=== PATIENT | male | born 1975 | race Caucasian/White ===

== ENCOUNTER 2019-10-21 12:09 | Emergency (ER) | payer BC ==
[~2019-10-21 12:09] MED LIST: Aspirin 81 MG Tab.Chew PO ONE; Clopidogrel 75 MG Tab PO ONE; Metoprolol Tartrate 25 MG Tab PO ONE
--- NOTE | 2019-10-21 12:41 | CR ---
Chest: Portable view of the chest was obtained. Comparison: No previous chest imaging. Heart size and mediastinum are normal. Lungs are clear. Bony structures are grossly intact. Impression: 1. Nothing acute is seen on portable chest x-ray. Diagnostic code #1 Study was dictated in [place] Standard Time
[2019-10-21 13:01] LABS: BLOOD UREA NITROGEN,BUN 13 mg/dL (7.0-18.0); CARBON DIOXIDE,CO2 28.9 mmol/L (21.0-32.0); CHLORIDE,CL 103 mmol/L (98-107); GLUCOSE RANDOM 141 mg/dL (74-106); POTASSIUM,K 3.7 mmol/L (3.5-5.1); SODIUM,NA 143 mmol/L (136-148)
[2019-10-21] MEDS ORDERED: Metoprolol Tartrate 25 MG Tab PO ONE (13:16)
--- NOTE | 2019-10-21 13:18 | EDM.PDOC ---
ED [facility] GENERAL MEDICAL PROBLEM - General Chief Complaint: Cardiovascular Problem Stated Complaint: BROUGHT FROM THE CLINIC Time Seen by Provider: 10/21/19 13:18 - History of Present Illness INITIAL COMMENTS - FREE TEXT/NARRATIVE: HPI 44-year-old obese male with DM II and HTN presents from cardiology clinic due to a new LBBB with anterior wall motion abnormalities in EF of ~25%, last chest pain approximately 2 days ago, had a significant period of chest pain approximately 3 weeks ago, currently asymptomatic. No shortness breath, no fevers or chills. Denies history of DVT or PE. Patient denies recent immobilization, leg trauma, estrogen use, surgery in the last four weeks, hemoptysis, or malignancy in the last 6 months. [employer] Supervisor: Brennon Ashley MD M/S/F/SocHx notable for: please see HPI; remainder reviewed with patient and in chart. ROS: Negative constitutional, eye, cardiovascular, pulmonary, GI, , MSK, skin , neurologic, psychiatric, endocrine unless noted in the HPI. Exam Gen: Pleasant, non-toxic appearing, resting comfortably. HEENT: NC, AT, PEERL, EOMI. Resp: Clear to auscultation bilaterally, normal work of breathing. Card: RRR with no M/R/G, no crackles in lung bases, no pedal edema, no JVD appreciated. GI: NT/ND Vascular: Both ankles, calves, and thighs of equal size, no calf tenderness to palpation bilaterally. MSK: No chest wall TTP. No visible deformities, strength and tone WNL. Skin: Normal color with no visible lesions. Neuro: alert and oriented 3, no facial asymmetry, vision and hearing WNL. Psych: Mood and affect appropriate. Labs / Imaging (pertinent): WBC 9.17, Hb 17.0, Na 143, K 3.7. Troponin <0.050 BNP (pending) EKG: SR 102 bpm, SC 156 ms, no SC segment depressions, QRS 159 ms, LBBB. Does not meet modified Sgrabossa criteria. CXR: nothing acute is seen on portable chest x-ray. MDM Previous chart, nursing note, and vitals reviewed. A: 44-year-old obese male with DM II and HTN presents from cardiology clinic due to a new LBBB with anterior wall motion abnormalities in EF of ~25%, last chest pain approximately 2 days ago, had a significant period of chest pain approximately 3 weeks ago, currently asymptomatic. DDx: ACS, unstable angina, pericarditis, myocarditis, dissection, PE, mediastinal air, pneumothorax, MSK, endocarditis, GI (GERD, gastritis, esophageal rupture, esophageal spasm). Evaluation: concern exists for unstable angina versus recent SD given the new LBBB, anterior wall motion abnormality, and poor EF, troponin negative. ED course as below. No features suggestive of pericarditis, myocarditis, PE, or dissection. However the latter two cannot be definitively excluded, however there felt to be unlikely given the overall symptom constellation. Further management evaluation deferred to the accepting physician. No features suggestive of musculoskeletal pain, endocarditis, or G.I. etiology noted that time the patients ED care. ED Course: Patient given ASA, Plavix, and 25 mg metoprolol x 2. Patient remained hypertensive but asymptomatic throughout his ED course. No chest pain, nausea, or shortness of breath. Disposition: transfer to [place] by Dr. Mehul Charlton accepting. Impression: Chest Pain. (please reference below for remainder of encounter information) Critical Care Time Organ system(s): Cardiopulmonary Intervention: Assessment of the patient, interpretation of studies, communication related to patient care. Time: 30 minutes were spent directly related to patient care exclusive of separately billed procedures. - Related Data Allergies Allergy/AdvReac Type Severity Reaction Status Date / Time No Known Allergies Allergy Verified 10/21/19 12:09 Home Meds: Home Meds Carvedilol [Coreg] mg PO DAILY 10/21/19 [History] Lisinopril [Zestril] mg PO DAILY 10/21/19 [History] hydroCHLOROthiazide [Hydrochlorothiazide] mg PO DAILY 10/21/19 [History] Past Medical History Cardiovascular History: Reports: Hypertension Endocrine/Metabolic History: Reports: Other (See Below) Other Endocrine/Metabolic History: boarderline DM2 - Infectious Disease History Infectious Disease History: Reports: Chicken Pox Social & Family History - Family History Family Medical History: Noncontributory - Tobacco Use Smoking Status *Q: Former Smoker Used Tobacco, but Quit: Yes Month/Year Tobacco Last Used: 1999 - Caffeine Use Caffeine Use: Reports: Soda - Recreational Drug Use Recreational Drug Use: No ED ROS GENERAL - Review of Systems Review Of Systems: See Below ED EXAM, GENERAL - Physical Exam Exam: See Below Course - Vital Signs Last Recorded V/S: Last Vital Signs Temp 37.1 C 10/21/19 12:11 Pulse 107 H 10/21/19 12:17 Resp 17 10/21/19 12:11 BP 214/149 H 10/21/19 12:17 Pulse Ox 94 L 10/21/19 12:11 - Orders/Labs/Meds Orders: Active Orders 24 hr Category Date Time Status EKG 12 Lead [EKG Documentation Completion] [RC] STAT Care 10/21/19 12:13 Active Metoprolol Tartrate [Lopressor] Med 10/21/19 13:16 Once 25 mg PO ONETIME ONE Medication Orders Metoprolol Tartrate (Lopressor) 25 mg PO ONETIME ONE Stop: 10/21/19 13:17 Labs: Laboratory Tests 10/21/19 10/21/19 10/21/19 Range/Units 12:07 12:07 12:07 WBC 9.17 (4.0-11.0) K/uL RBC 5.12 (4.50-5.90) M/uL Hgb 17.0 (13.0-17.0) g/dL Hct 47.8 (38.0-50.0) % MCV 93.4 (80.0-98.0) fL MCH 33.2 H (27.0-32.0) pg MCHC 35.6 (31.0-37.0) g/dL RDW Std Deviation 46.2 (28.0-62.0) fl RDW Coeff of Wm 13 (11.0-15.0) % Plt Count 229 (150-400) K/uL MPV 9.90 (7.40-12.00) fL Neut % (Auto) 50.9 (48.0-80.0) % Lymph % (Auto) 36.0 (16.0-40.0) % [place] % (Auto) 7.1 (0.0-15.0) % Eos % (Auto) 5.2 (0.0-7.0) % Baso % (Auto) 0.8 (0.0-1.5) % Neut # (Auto) 4.7 (1.4-5.7) K/uL Lymph # (Auto) 3.3 H (0.6-2.4) K/uL [place] # (Auto) 0.7 (0.0-0.8) K/uL Eos # (Auto) 0.5 (0.0-0.7) K/uL Baso # (Auto) 0.1 (0.0-0.1) K/uL Nucleated RBC % 0.0 /100WBC Nucleated RBCs # 0 K/uL Sodium 143 (136-148) mmol/L Potassium 3.7 (3.5-5.1) mmol/L Chloride 103 (98-107) mmol/L Carbon Dioxide 28.9 (21.0-32.0) mmol/L BUN 13 (7.0-18.0) mg/dL Creatinine 1.1 (0.8-1.3) mg/dL Est Cr Clr Drug Dosing 90.32 mL/min Estimated GFR (MDRD) > 60.0 ml/min Glucose 141 H (74-106) mg/dL Calcium 10.1 (8.5-10.1) mg/dL Troponin I < 0.050 (0.000-0.056) ng/mL B-Natriuretic Peptide 88 (<100) PG/ML Meds: Medications Generic Name Dose Route Start Last Admin Trade Name Freq PRN Reason Stop Dose Admin Metoprolol Tartrate 25 mg 10/21/19 13:16 Lopressor PO 10/21/19 13:17 ONETIME ONE Discontinued Medications Generic Name Dose Route Start Last Admin Trade Name Freq PRN Reason Stop Dose Admin Aspirin 324 mg 10/21/19 12:10/21/19 12:18 Aspirin PO 10/21/19 12:10 324 mg ONETIME ONE Administration Clopidogrel Bisulfate 300 mg 10/21/19 12:10/21/19 12:18 Plavix PO 10/21/19 12:10 300 mg ONETIME ONE Administration Metoprolol Tartrate 25 mg 10/21/19 12:09 10/21/19 12:17 Lopressor PO 10/21/19 12:10 25 mg ONETIME ONE Administration Departure - Departure Time of Disposition: 13:18 Disposition: DC/Tfer to Other 70 Reason for Transfer *Q: Primary PCI Indicated Clinical Impression: Chest pain Referrals: PCP,None [Primary Care Provider] - Sepsis Event Note - Evaluation Sepsis Screening Result: No Definite Risk - Focused Exam Vital Signs: Vital Signs Temp Pulse Pulse Resp BP BP Pulse Ox 10/21/19 12:17 107 H 214/149 H 10/21/19 12:11 37.1 C 108 H 17 214/149 H 94 L Date Exam was Performed: 10/21/19 Time Exam was Performed: 13:16 - My Orders Last 24 Hours: My Active Orders 10/21/19 12:13 EKG 12 Lead [EKG Documentation Completion] [RC] STAT 10/21/19 13:16 Metoprolol Tartrate [Lopressor] 25 mg PO ONETIME ONE - Assessment/Plan Last 24 Hours: My Active Orders 10/21/19 12:13 EKG 12 Lead [EKG Documentation Completion] [RC] STAT 10/21/19 13:16 Metoprolol Tartrate [Lopressor] 25 mg PO ONETIME ONE
== END 2019-10-21 14:16 | disposition other institution (70) ==
LOC: MW.ED 12:09
DX: R07.9 Chest pain, unspecified (principal); I10 Essential (primary) hypertension; Z87.891 Personal history of nicotine dependence; Z79.899 Other long term (current) drug therapy
CPT/HCPCS: 36415; 71045; 80048; 83880; 84484; 85025; 93005; 99285; A9270; 99284

== ENCOUNTER 2024-05-31 14:07 | Emergency (ER) | payer SELFPAY ==
[2024-05-31 14:24] LABS: BASOPHILS ABSOLUTE AUTO 0.12 K/uL (0.00-0.20); BASOPHILS PERCENT AUTO 1.3 % (0.0-1.0); EOSINOPHILS ABSOLUTE AUTO 0.33 K/uL (0.00-0.45); EOSINOPHILS PERCENT AUTO 3.5 % (0.0-6.0); HEMATOCRIT 44.7 % (42.0-52.0); HEMOGLOBIN 16.2 g/dL (14.0-18.0); IMMATURE GRAN ABSOLUTE AUTO 0.02 K/uL (0.00-0.05); IMMATURE GRAN PERCENT AUTO 0.2 % (0.0-0.4); LYMPHOCYTES ABSOLUTE AUTO 2.74 K/uL (1.00-4.80); LYMPHOCYTES PERCENT AUTO 29.3 % (24.0-44.0); MEAN CORPUSCULAR HEMOGLOBIN 33.7 pg (28.0-32.0); MEAN CORPUSCULAR HGB CONC 36.2 g/dL (32.0-36.0); MEAN CORPUSCULAR VOLUME 92.9 fL (83.0-99.0); MONOCYTES ABSOLUTE AUTO 0.72 K/uL (0.00-0.80); MONOCYTES PERCENT AUTO 7.7 % (0.0-8.0); NEUTROPHILS ABSOLUTE AUTO 5.43 K/uL (1.80-7.70); PLATELET COUNT,PLT 213 K/uL (150-400); RED BLOOD CELL COUNT 4.81 M/uL (4.52-5.90); WHITE BLOOD CELL COUNT,WBC 9.36 K/uL (3.9-11.3)
[2024-05-31] MEDS: Aspirin 81 MG Tab.Chew PO ONE (14:26)
[2024-05-31] MEDS: Nitroglycerin 0.4 MG Tab.SL SL PRN (14:27)
[2024-05-31] MEDS: Aspirin 81 MG Tab.Chew PO STA (14:28)
[2024-05-31] MEDS: Acetaminophen 500 MG Tab PO ONE (14:38)
[2024-05-31 14:55] LABS: A/G RATIO 0.8 (0.9-1.6); ALBUMIN 3.6 g/dL (3.4-5.0); BILIRUBIN TOTAL 0.6 mg/dL (0.2-1.0); CALCIUM 9.7 mg/dL (8.5-10.1); CARBON DIOXIDE,CO2 29.6 mmol/L (21.0-32.0); CREATININE 1.3 mg/dL (0.8-1.3); EST CRCL DRUG DOSING (CG) 70.97 mL/min; MAGNESIUM 1.5 mg/dL (1.8-2.4); POTASSIUM,K 3.5 mmol/L (3.5-5.1); PROTEIN TOTAL,TP 7.9 g/dL (6.4-8.2)
[2024-05-31] MEDS: Nitroglycerin/D5W 25 MG/250 ML BOTTLE IV SCH (14:59)
[2024-05-31] MEDS: Magnesium Sulfate/Water Premix 2 GM in Premix Bag 1 BAG IV ONE (15:51)
[2024-05-31] MEDS: Labetalol 100 MG/20 ML MDV IVPUSH ONE ×2 (16:13→17:44)
[2024-05-31] MEDS: Morphine 4 MG/ML Syringe IVPUSH ONE (16:42)
[2024-05-31] MEDS: Ondansetron 4 MG/2 ML SDV IVPUSH ONE (16:43)
[2024-05-31] MEDS: Iopamidol 755 MG/ML 500 ML Multipack Bottle IVPUSH STA (18:13)
== END 2024-05-31 20:01 ==
LOC: MW.ED 14:07
DX: I44.7 Left bundle-branch block, unspecified (principal); I16.0 Hypertensive urgency; I20.0 Unstable angina; I10 Essential (primary) hypertension; I25.2 Old myocardial infarction; R61 Generalized hyperhidrosis; R06.09 Other forms of dyspnea; E78.5 Hyperlipidemia, unspecified; E11.9 Type 2 diabetes mellitus without complications; Z95.5 Presence of coronary angioplasty implant and graft; R07.9 Chest pain, unspecified; Z79.82 Long term (current) use of aspirin; Z79.899 Other long term (current) drug therapy; Z75.8 Other problems related to medical facilities and other health care
CPT/HCPCS: 36415; 71045; 71275; 80053; 83690; 83735; 83880; 84484; 85025; 93005; 96365; 96366; 96368; 96375; 99285; A9270; J1921; J2270; J2305; J2405; J3475; Q9967; 93010